=== PATIENT | female | born 1980 | race Caucasian/White ===

== ENCOUNTER → 2018-06-03 | Outpatient (CLI) | payer BC ==
[~2018-06-03] MED LIST: AMOXICILLIN500 M2 PO; HYDROCODONE BIT1 T11 PO; IBUPROFEN600 MG PO; MOTRIN800 MG PO; PEN-VEE K500 MG PO
== END | disposition home or self-care (01) ==
LOC: RAD 14:15
DX: M85.842 Other specified disorders of bone density and structure, left hand (principal); M85.841 Other specified disorders of bone density and structure, right hand

== ENCOUNTER 2018-07-02 11:06 | Emergency (ER) | payer BC ==
[~2018-07-02] VITALS: Ht 152.4 cm; Wt 43.1 kg
[~2018-07-02 11:06] MED LIST changes: -AMOXICILLIN500 M2 PO; -IBUPROFEN600 MG PO
[2018-07-02] MEDS ORDERED: AMOXICILLIN500 M2 PO (12:01)
[2018-07-02] MEDS ORDERED: IBUPROFEN600 MG PO (12:01)
== END 2018-07-02 12:06 | disposition home or self-care (01) ==
LOC: ED 11:06
DX: K08.89 Other specified disorders of teeth and supporting structures (principal)